=== PATIENT | female | born 1990 | race Caucasian/White ===

== ENCOUNTER 2016-08-08 20:41 | Emergency (ER) | payer OTHER ==
[~2016-08-08] VITALS: Ht 157.5 cm; Wt 71.3 kg
[2016-08-08 21:20] VITALS: Ht 157.5 cm; Wt 71.3 kg
--- NOTE | 2016-08-08 21:54 | ERPDOC ---
Departure Disposition Decision Date: August 08, 2016 Disposition Decision Time: 22:03 Disposition: 01 DISCHARGED HOME, SELF-CARE Impression Impression Impression: Primary Impression: Hand laceration Encounter type: initial encounter Foreign body presence: without foreign body Laterality: right Qualified Codes: S61.411A - Laceration without foreign body of right hand, initial encounter Severity: Moderate Condition: Improved Seen By: Physician only Patient Instructions: Care For Your Stitches (ED), Laceration (ED) Problems/Meds/Labs Reviewed?: Yes Medications reviewed and manag: Yes Additional Instructions: Dressing in place for the next 24 hours, thereafter wash wound daily with mild soap and water, dress daily with a light coat of Vaseline and dry gauze dressing /Band-Aid. Stitches removed in 7-10 days Follow up care ordered?: Yes Mental Status: Alert, Oriented Scripts No Active Prescriptions or Reported Meds HPI General Chief Complaint: Laceration Stated Complaint: HAND LACERATION Time Seen by Provider: 21:41 Source: patient Exam Limitations: no limitations HPI Hand/Forearm Initial Comments Patient has a minor puncture wound to the right thenar eminence, that she got while working with a knife in her kitchen. She dropped a knife and as she attempted gravid 40 floor, the base of the knife hit the floor in the tip stabbed her in the right thenar. Patient has had mild pain since that time, but was more concerned that she could not get the bleeding stopped. Patient has a one similar puncture wound, from a clean knife. Tetanus is up-to-date 2 years ago Occurred At: home Onset: Rapid Duration: 1-3 hrs Severity: mild Location: right: hand 1 - 1 cm full-thickness puncture Method of Injury: incised Associated Symptoms: pain with grasp, DENIES: bruising, numbness, pain with extension, pain with flexion, pallor, red streaks, redness, swelling, weakness Allergies: Coded Allergies: No Known Allergies (Unverified , 08/08/16) Past History Past Medical History Pt denies signifigant [facility] Surgical History Denies Surgeries Social History Tobacco Usage: none Alcohol Usage: none Drug Usage: none Record Review Pertinent history updated: Yes Review of Systems Constitutional Constitutional: DENIES: appetite decrease, appetite increase, chills, dizziness , fever, weakness ENMT Ears: DENIES: pain Hearing: DENIES: hearing loss, tinnitus Balance: DENIES: vertigo Mouth/Throat: DENIES: change in swallowing, change in voice, hoarsness, painful swallowing, sore throat Cardiovascular Cardiac: DENIES: chest pain, dyspnea on exertion Rhythm/Rate: DENIES: irregular beat, palpitations, tachycardia Vascular: DENIES: pedal edema Pulmonary Respiratory: DENIES: cough, dyspnea, pleuritic chest pain GI Upper Abdomen: DENIES: dysphagia, heartburn/indigestion, nausea, pain, vomiting Lower Abdomen: DENIES: blood in stool, constipation, diarrhea, pain General: DENIES: burning, dysuria, frequency, pain, urgency Musculoskeletal General: DENIES: cramps, joint pain, joint swelling, pain, weakness Integumentary Skin: DENIES: rash, sores Neurological General: DENIES: headache, numbness, tingling, vertigo, weakness Psychiatric Psychiatric: DENIES: anxiety, depression, nervousness Exam General General Nourishment: well nourished, well developed, appears stated age, no acute distress General Body Habitus: well groomed Bad tableHeight (Feet): 5 Height (Inches): 2.00 [place]rak Hand/Forearm Comments 1 cm full-thickness laceration/puncture wound to the right thenar, minimal active bleeding. She has neurovascularly intact with good cap refill and normal sensation, normal range of motion and function Neurologic RN Documented GCS Eye Opening: (4)Spontaneous Verbal: (5)Oriented Motor: (6)Obeys Commands Total: Procedures Procedures Performed Procedures Performed: Laceration Repair Laceration/Wound Repair Wound/Laceration Repair : Wound Location: upper extremity Wound Length (cm): 1 Depth, Shape: subcutaneous, puncture Explored: clean Irrigated: saline Prep: hibiclens Anesthesia: 0.5% Bupivicaine Volume Anesthetic (ccs): 2 Type of Block: local Wound Debrided: minimal Wound Revision?: No Repaired With: Sutures Suture Size: 4:0 Suture Type: prolene Number of Sutures: 2 Progress Progress Progress Initially after shared decision-making, Dermabond was attempted, but due to persistent bleeding, no skin closure could be obtained. Patient tolerated local injection of anesthetic and closure well. KENNETH HARP MD August 08, 2016 21:54
[2016-08-08] MEDS ORDERED: BUPIVACAINE 0.5% (5mg/ml) 30ml INJ SDV INFIL ONE (22:00)
[2016-08-08 22:14] VITALS: BP 142/93; PULSE 98; RESP 16; TEMP 98.5; O2SAT 99
== END 2016-08-08 22:14 | disposition home or self-care (01) ==
LOC: ED 20:41
DX: S61.411A Laceration without foreign body of right hand, initial encounter (principal); W26.0XXA Contact with knife, initial encounter; Y93.89 Activity, other specified; Y92.000 Kitchen of unspecified non-institutional (private) residence as the place of occurrence of the external cause; Y99.8 Other external cause status